=== PATIENT | male | born 1960 | race Caucasian/White ===

== ENCOUNTER 2022-08-29 12:36 | Observation (INO) | payer MEDICARE, OTHER ==
[~2022-08-29 12:36] MED LIST: Iopamidol-370 76% 500 ML 1 ML ONE
[2022-08-29] MEDS ORDERED: Aspirin Chewable 81 MG TAB ONE (13:00)
[2022-08-29] MEDS ORDERED: Ondansetron PF 4 MG/2 ML Vial ONE (13:00)
[2022-08-29] MEDS ORDERED: Nitroglycerin 50 MG/250 ML BOT 250 ML ONE (13:00)
[2022-08-29 13:46] LABS: #Lymphocytes 0.3 thou/uL (1.20-3.40); #Monocytes 0.5 thou/uL (0.11-0.59); #Neutrophils 8.5 thou/uL (1.40-6.50); %Eosinophils 0.1 % (0.0-10.0); %Lymphocytes 3.4 % (21.0-51.0); %Monocytes 4.8 % (0.0-10.0); %Neutrophils 91.7 % (42.0-75.0); Hemoglobin 15.9 g/dL (14.0-18.0); Mean Corpuscular HGB CONC 33.5 g/dL (32.0-36.0); Mean Corpuscular Hemoglobin 30.6 pg (27.0-31.0); Mean Corpuscular Volume 91.5 fl (78.0-98.0); Mean Platelet Volume 8.7 fL (7.4-10.4); Platelet Count 160 10x3/uL (130-400); RBC Distribution Width 12.1 % (11.5-14.5); White Blood Cell (WBC) Count 9.3 10x3/uL (4.8-10.8)
[2022-08-29 13:57] LABS: Acetaminophen Less than 10.0 mcg/mL (10.0-30.0); Alcohol Less than 10 mg/dL (Less than 10); CK (CPK) 240 U/L (30-200); PTT 29.8 sec (22.9-36.1); Prothrombin Time 13.9 sec (12.0-14.7); Salicylate Less than 8.0 mg/dL (15.0-30.0)
[2022-08-29 14:00] LABS: ALT (SGPT) 13 U/L (8-55); AST (SGOT) 22 U/L (5-34); Albumin 4.6 g/dL (3.4-4.8); Alkaline Phosphatase 74 U/L (40-110); Anion Gap 14 mmol/L (10-20); BUN (Urea Nitrogen) 11 mg/dL (8.4-25.7); Bilirubin, Total 2.8 mg/dL (0.2-1.2); Calc. Creatinine Clearance 0 mL/min (70-130); Calcium 9.9 mg/dL (7.8-10.44); Carbon Dioxide 21 mmol/L (23-31); Chloride 97 mmol/L (98-107); Estimated GFR 88; Globulin 3.6 g/dL (2.4-3.5); Glucose 113 mg/dL (80-115); Lipase 6 U/L (8-78); Potassium 2.8 mmol/L (3.5-5.1); Protein, Total 8.2 g/dL (5.8-8.1); Sodium 129 mmol/L (136-145)
[2022-08-29 14:06] LABS: Bilirubin Negative (Negative); Blood, Urine Negative (Negative); Clarity Clear (Clear); Glucose, Urine (Dipstick) Normal (Negative); Ketone, Urine 60 mg/dL (Negative); Leukocyte Negative Leu/uL (Negative); Nitrite Negative (Negative); Protein, Urine (Dipstick) 10 mg/dL (Neg-Trace); Specific Gravity, Urine 1.024 (1.002-1.036); Urobilinogen Normal mg/dL (Less than 2); pH, Urine 7.5 (5.0-9.0)
[2022-08-29 14:14] LABS: Amphetamine Detected (NotDetected); Barbiturates Screen Not Detected (NotDetected); Benzodiazepine Screen Not Detected (NotDetected); Cocaine Metabolite Screen Not Detected (NotDetected); Methadone Not Detected (NotDetected); Methamphetamine Detected (NotDetected); Opiate Screen Detected (NotDetected); Oxycodone Screen Not Detected (NotDetected); Phencyclidine (PCP) Not Detected (NotDetected); THC/Cannabinoid Screen Not Detected (NotDetected); Tricyclic Screen Not Detected (NotDetected)
[2022-08-29] MEDS ORDERED: Acetaminophen 500 MG TAB ONE (14:17)
[2022-08-29] MEDS ORDERED: Ketorolac Tromethamine 30 MG/ML VIAL ONE (14:35)
[2022-08-29] MEDS ORDERED: Nitroglycerin 2% Ointment 1 INCH/1 GM Packet ONE (14:35)
[2022-08-29] MEDS ORDERED: Acetaminophen 325 MG TAB PO PRN (15:59)
[2022-08-29] MEDS ORDERED: Lorazepam 2 MG/ML VIAL SLOW IVP SCH ×2 (16:00→23:59)
[2022-08-29] MEDS ORDERED: cloNIDine 0.1 MG TAB PO PRN (16:01)
[2022-08-29] MEDS ORDERED: Baclofen 10 MG TAB PO PRN (16:04)
[2022-08-29] MEDS ORDERED: Nicotine 14 MG PATCH TD PRN (16:15)
[2022-08-29] MEDS ORDERED: Electrolyte Replacement Protocol 1 EACH FS SCH (16:15)
[2022-08-29] MEDS ORDERED: Sodium Chloride 0.9% 1,000 ML IV SCH ×2 (16:15→18:00)
[2022-08-29 16:51] LABS: Magnesium 1.4 mg/dL (1.6-2.6)
[2022-08-29 16:56] LABS: Troponin I Less than 0.010 ng/mL (< 0.028)
[2022-08-29 17:06] VITALS: BMI 29.0
[2022-08-29] MEDS: Metoclopramide HCl 10 MG/2 ML VIAL IVP PRN (18:11)
[2022-08-29] MEDS: Lorazepam 2 MG/ML VIAL SLOW IVP PRN ×4 (18:12→22:19)
[2022-08-29] MEDS: Potassium Chloride 40 MEQ in Premix Bag 1 BAG IVPB SCH ×2 (18:52→23:46)
[2022-08-29] MEDS: NS 0.9% w/ 40 MEQ KCL 1,000 ML IV SCH (19:40)
[2022-08-29] MEDS ORDERED: Magnesium 2 GM/50 ML(in water) 2 GM in Premix Bag 1 BAG IVPB SCH (20:00)
[2022-08-29 21:01] LABS: Troponin I Less than 0.010 ng/mL (< 0.028)
[2022-08-30] MEDS: Lorazepam 2 MG/ML VIAL SLOW IVP PRN ×2 (01:28→08:48)
[2022-08-30] MEDS: Metoclopramide HCl 10 MG/2 ML VIAL IVP PRN ×2 (03:02→08:48)
[2022-08-30 04:30] VITALS: BP 157/81; TEMP 98.4
[2022-08-30 05:33] LABS: #Basophils 0.1 thou/uL (0.0-0.2); #Lymphocytes 0.4 thou/uL (1.20-3.40); #Monocytes 0.9 thou/uL (0.11-0.59); #Neutrophils 7.4 thou/uL (1.40-6.50); %Basophils 1.4 % (0.0-1.0); %Eosinophils 0.2 % (0.0-10.0); %Lymphocytes 4.7 % (21.0-51.0); %Monocytes 10.1 % (0.0-10.0); %Neutrophils 83.6 % (42.0-75.0); Hemoglobin 16.8 g/dL (14.0-18.0); Mean Corpuscular HGB CONC 33.8 g/dL (32.0-36.0); Mean Corpuscular Hemoglobin 30.9 pg (27.0-31.0); Mean Corpuscular Volume 91.4 fl (78.0-98.0); Mean Platelet Volume 9.2 fL (7.4-10.4); Platelet Count 153 10x3/uL (130-400); RBC Distribution Width 12.2 % (11.5-14.5); Red Blood Cell (RBC) Count 5.44 mill/uL (4.70-6.10); White Blood Cell (WBC) Count 8.8 10x3/uL (4.8-10.8)
[2022-08-30 05:49] LABS: Anion Gap 16 mmol/L (10-20); BUN (Urea Nitrogen) 11 mg/dL (8.4-25.7); Calc. Creatinine Clearance 104 mL/min (70-130); Calcium 9.8 mg/dL (7.8-10.44); Carbon Dioxide 19 mmol/L (23-31); Chloride 101 mmol/L (98-107); Estimated GFR 93; Glucose 101 mg/dL (80-115); Potassium 3.5 mmol/L (3.5-5.1); Sodium 132 mmol/L (136-145)
[2022-08-30] MEDS ORDERED: Potassium Chloride 20 MEQ TAB PO SCH (08:00)
[2022-08-30] MEDS ORDERED: Magnesium 2 GM/50 ML(in water) 2 GM in Premix Bag 1 BAG IVPB SCH (08:00)
[2022-08-30] MEDS ORDERED: Levothyroxine Sodium 25 MCG TAB PO SCH (08:15)
[2022-08-30] MEDS: NS 0.9% w/ 40 MEQ KCL 1,000 ML IV SCH (10:17)
[2022-08-31] MEDS ORDERED: Levothyroxine Sodium 25 MCG TAB PO SCH (06:00)
== END 2022-08-30 10:25 | disposition home or self-care (01) ==
LOC: ERS 12:36 → 2SW 16:23
PROVIDERS: ADMIT Internal Medicine; ATTEND Internal Medicine
DX: F15.129 Other stimulant abuse with intoxication, unspecified (principal); E87.1 Hypo-osmolality and hyponatremia; E87.6 Hypokalemia; E83.42 Hypomagnesemia; G89.29 Other chronic pain; M54.2 Cervicalgia; F90.9 Attention-deficit hyperactivity disorder, unspecified type; R94.31 Abnormal electrocardiogram [ECG] [EKG]; F17.220 Nicotine dependence, chewing tobacco, uncomplicated; J32.0 Chronic maxillary sinusitis; Z79.890 Hormone replacement therapy; Z79.891 Long term (current) use of opiate analgesic; Z79.899 Other long term (current) drug therapy; Z20.822 Contact with and (suspected) exposure to COVID-19
CPT/HCPCS: 70450; 71045; 71275; 74174; 80048; 80306; 80307; 81003; 82550; 83605; 83690; 83735 ×2; 84484 ×2; 85025; 85610; 85730; 93005; 96374; 96375; 99285; U0003; U0005; 36415; 80053; 84443; 96365; 96376; G0378; J1885; J2060; J2405; J2765; J3475; J3480; J7050; Q9967

== ENCOUNTER 2023-06-06 04:50 | Inpatient (IN) | payer OTHER ==
[2023-06-06] MEDS ORDERED: Vancomycin 1 GM/200 ML (FROZEN) BAG ONE (05:37)
[2023-06-06] MEDS ORDERED: Cefepime 2 GM VIAL ONE (05:37)
[2023-06-06 05:47] LABS: #Eosinphils 0.1 thou/uL (0.0-0.7); #Monocytes 0.5 thou/uL (0.11-0.59); #Neutrophils 4.6 thou/uL (1.40-6.50); %Basophils 0.5 % (0.0-1.0); %Eosinophils 1.1 % (0.0-10.0); %Monocytes 8.1 % (0.0-10.0); %Neutrophils 81.1 % (42.0-75.0); Hematocrit 38.2 % (42.0-52.0); Hemoglobin 13.5 g/dL (14.0-18.0); Mean Corpuscular HGB CONC 35.3 g/dL (32.0-36.0); Mean Corpuscular Hemoglobin 31.2 pg (27.0-31.0); Mean Corpuscular Volume 88.2 fl (78.0-98.0); Mean Platelet Volume 10.9 fL (7.4-10.4); Platelet Count 168 10x3/uL (130-400); RBC Distribution Width 12.6 % (11.5-14.5); Red Blood Cell (RBC) Count 4.33 mill/uL (4.70-6.10); White Blood Cell (WBC) Count 5.7 10x3/uL (4.8-10.8)
[2023-06-06 06:12] LABS: Acetaminophen Less than 10 mcg/mL (10.0-30.0); Alcohol Less than 10.0 mg/dL (Less than 10); Salicylate Less than 8.0 mg/dL (15.0-30.0)
[2023-06-06 06:13] LABS: ALT (SGPT) 11 U/L (8-55); AST (SGOT) 14 U/L (5-34); Albumin 4.1 g/dL (3.4-4.8); Alkaline Phosphatase 69 U/L (40-110); Anion Gap 14 mmol/L (10-20); BUN (Urea Nitrogen) 15 mg/dL (8.4-25.7); Bilirubin, Total 1.5 mg/dL (0.2-1.2); Calc. Creatinine Clearance 0 mL/min (70-130); Carbon Dioxide 21 mmol/L (23-31); Chloride 103 mmol/L (98-107); Estimated GFR 78; Globulin 2.7 g/dL (2.4-3.5); Glucose 106 mg/dL (80-115); Lipase 7 U/L (8-78); Potassium 3.6 mmol/L (3.5-5.1); Protein, Total 6.8 g/dL (5.8-8.1); Sodium 134 mmol/L (136-145)
[2023-06-06] MEDS ORDERED: Promethazine HCl 25 MG/ML VIAL ONE (06:21)
[2023-06-06 06:26] LABS: SARS-CoV-2 NAA Rapid Test DETECTED (NotDetected)
[2023-06-06 07:21] LABS: Bacteria/HPF None Seen HPF (None Seen); Bilirubin Negative (Negative); Blood, Urine Negative (Negative); CAUTI Indications for Culture Fever or rigors; Glucose, Urine (Dipstick) Normal (Negative); Ketone, Urine Negative (Negative); Leukocyte Negative Leu/uL (Negative); Nitrite Negative (Negative); Protein, Urine (Dipstick) 10 mg/dL (Neg-Trace); Specific Gravity, Urine 1.019 (1.002-1.036); Squamous Epithelial None Seen HPF (0-3); Urobilinogen Normal mg/dL (Less than 2)
[2023-06-06 07:28] LABS: Amphetamine Not Detected (NotDetected); Barbiturates Screen Not Detected (NotDetected); Benzodiazepine Screen Not Detected (NotDetected); Cocaine Metabolite Screen Not Detected (NotDetected); Methadone Not Detected (NotDetected); Methamphetamine Not Detected (NotDetected); Opiate Screen Detected (NotDetected); Oxycodone Screen Not Detected (NotDetected); Phencyclidine (PCP) Not Detected (NotDetected); THC/Cannabinoid Screen Not Detected (NotDetected); Tricyclic Screen Not Detected (NotDetected)
[2023-06-06 07:36] LABS: Clarity Hazy (Clear)
[2023-06-06 07:37] LABS: RBC/HPF None Seen HPF (0-3); WBC/HPF None Seen HPF (0-3); Yeast-Budding None Seen HPF (None Seen)
[2023-06-06 07:38] LABS: Urine Culture Reflex No No
[2023-06-06 07:49] VITALS: BMI 28.3
[2023-06-06] MEDS ORDERED: VANCOMYCIN IVPB PRN (08:38)
[2023-06-06] MEDS ORDERED: Polyethylene Glycol 3350 17 GM Packet PO PRN (08:40)
[2023-06-06] MEDS ORDERED: Docusate 100 MG CAP PO PRN (08:40)
[2023-06-06] MEDS ORDERED: Acetaminophen 650 MG Suppository PR PRN (08:41)
[2023-06-06] MEDS ORDERED: Albuterol 200 PUFF (6.7GM INHALER) INH PRN (08:43)
[2023-06-06] MEDS ORDERED: NS 0.9% w/ 20 MEQ KCL 1,000 ML/1,000 ML BAG IV SCH (08:45)
[2023-06-06] MEDS ORDERED: Electrolyte Replacement Protocol 1 EACH FS SCH (08:45)
[2023-06-06 09:06] LABS: CRP (Inflammatory) 1.37 mg/dL (= or < 0.5); Magnesium 1.5 mg/dL (1.6-2.6)
[2023-06-06] MEDS ORDERED: REMDESIVIR 200 MG in Sodium Chloride 0.9% 250 ML 210 ML IV SCH (09:45)
[2023-06-06] MEDS ORDERED: Ascorbic Acid 500 mg Chewable Tablet PO SCH (09:45)
[2023-06-06] MEDS ORDERED: Tamsulosin HCl 0.4 MG CAP PO SCH (09:45)
[2023-06-06] MEDS ORDERED: Dexamethasone 10 MG/ML VIAL SLOW IVP SCH (09:45)
[2023-06-06] MEDS ORDERED: Lisinopril 10 MG TAB PO SCH (09:45)
[2023-06-06] MEDS ORDERED: Pantoprazole 40 MG VIAL IVP SCH (09:45)
[2023-06-06] MEDS ORDERED: Zinc Sulfate 220 MG CAP PO SCH (09:46)
[2023-06-06] MEDS ORDERED: Electrolyte Replacement Protocol FS PRN (10:00)
[2023-06-06] MEDS: Metoclopramide HCl 10 MG/2 ML VIAL IVP PRN ×2 (10:07→16:40)
[2023-06-06] MEDS: Acetaminophen 325 MG TAB PO PRN ×2 (10:29→16:40)
[2023-06-06] MEDS: Benzonatate 100 MG CAP PO PRN ×2 (10:30→16:40)
[2023-06-06] MEDS ORDERED: Magnesium 2 GM/50 ML(in water) 2 GM in Premix Bag 1 BAG IVPB SCH (12:30)
[2023-06-06] MEDS: Vancomycin 1 GM in Premix Bag 1 BAG IVPB SCH (14:17)
[2023-06-06] MEDS ORDERED: Cefepime 1 GM in Sodium Chloride 0.9% 100 ML IVPB SCH (17:00)
[2023-06-06] MEDS ORDERED: Morphine ER 15 MG TAB PO SCH (18:15)
[2023-06-06] MEDS ORDERED: Zolpidem Tartrate 5 MG TAB PO PRN (18:45)
[2023-06-06] MEDS ORDERED: Cholecalciferol 1,000 UNITS (25 MCG) TAB PO SCH (21:00)
[2023-06-07] MEDS: Vancomycin 1 GM in Premix Bag 1 BAG IVPB SCH (00:40)
[2023-06-07 04:49] VITALS: BP 166/94; TEMP 98
[2023-06-07] MEDS ORDERED: Cefepime 2 GM in Sodium Chloride 0.9% 100 ML IVPB SCH (05:00)
[2023-06-07 05:46] LABS: #Monocytes 0.9 thou/uL (0.11-0.59); #Neutrophils 5.5 thou/uL (1.40-6.50); %Basophils 0.1 % (0.0-1.0); %Lymphocytes 8.4 % (21.0-51.0); %Monocytes 12.3 % (0.0-10.0); %Neutrophils 79.1 % (42.0-75.0); Hemoglobin 14.8 g/dL (14.0-18.0); Mean Corpuscular HGB CONC 36.1 g/dL (32.0-36.0); Mean Corpuscular Hemoglobin 31.4 pg (27.0-31.0); Mean Platelet Volume 10.5 fL (7.4-10.4); Platelet Count 174 10x3/uL (130-400); RBC Distribution Width 12.4 % (11.5-14.5); Red Blood Cell (RBC) Count 4.71 mill/uL (4.70-6.10); White Blood Cell (WBC) Count 6.9 10x3/uL (4.8-10.8)
[2023-06-07] MEDS ORDERED: Levothyroxine Sodium 25 MCG TAB PO SCH (06:00)
[2023-06-07 06:09] LABS: ALT (SGPT) 10 U/L (8-55); AST (SGOT) 18 U/L (5-34); Albumin 4.3 g/dL (3.4-4.8); Alkaline Phosphatase 67 U/L (40-110); Bilirubin, Direct 0.4 mg/dL (0.1-0.3); Bilirubin, Total 0.8 mg/dL (0.2-1.2); Protein, Total 7.5 g/dL (5.8-8.1)
[2023-06-07 06:14] LABS: ALT (SGPT) 11 U/L (8-55); AST (SGOT) 19 U/L (5-34); Albumin 4.2 g/dL (3.4-4.8); Alkaline Phosphatase 66 U/L (40-110); Anion Gap 12 mmol/L (10-20); BUN (Urea Nitrogen) 11 mg/dL (8.4-25.7); Calc. Creatinine Clearance 99 mL/min (70-130); Carbon Dioxide 22 mmol/L (23-31); Chloride 105 mmol/L (98-107); Estimated GFR 87; Globulin 3.4 g/dL (2.4-3.5); Glucose 112 mg/dL (80-115); Potassium 3.4 mmol/L (3.5-5.1); Protein, Total 7.6 g/dL (5.8-8.1); Sodium 136 mmol/L (136-145)
[2023-06-07] MEDS ORDERED: Potassium Chloride 20 MEQ TAB PO SCH (08:00)
[2023-06-07] MEDS ORDERED: Pantoprazole 40 MG VIAL IVP SCH (09:00)
[2023-06-07] MEDS ORDERED: Ascorbic Acid 500 mg Chewable Tablet PO SCH (09:00)
[2023-06-07] MEDS ORDERED: Zinc Sulfate 220 MG CAP PO SCH (09:00)
[2023-06-07] MEDS ORDERED: Lisinopril 10 MG TAB PO SCH (09:00)
[2023-06-07] MEDS ORDERED: Tamsulosin HCl 0.4 MG CAP PO SCH (09:00)
[2023-06-07] MEDS ORDERED: Dexamethasone 10 MG/ML VIAL SLOW IVP SCH (09:00)
[2023-06-07] MEDS ORDERED: REMDESIVIR 100 MG in Sodium Chloride 0.9% 250 ML 230 ML IV SCH (09:00)
== END 2023-06-07 08:41 | disposition home or self-care (01) | DRG 871 ==
LOC: SUATTDRO 04:50 → ERS 04:50 → T4-B 07:32 → OBSVTOIN 08:55
PROVIDERS: ADMIT Student in an Organized Health Care Education/Training Program; ATTEND Family Medicine
PROC: XW033E5 Introduction of Remdesivir Anti-infective into Peripheral Vein, Percutaneous Approach, New Technology Group 5 (ICD-10-PCS; principal; 2023-06-06)
PROC: 3E0333Z Introduction of Anti-inflammatory into Peripheral Vein, Percutaneous Approach (ICD-10-PCS; 2023-06-06)
PROC: 8E0ZXY6 Isolation (ICD-10-PCS; 2023-06-06)
DX: A41.89 Other specified sepsis (principal); J96.01 Acute respiratory failure with hypoxia; U07.1 COVID-19; I10 Essential (primary) hypertension; F41.9 Anxiety disorder, unspecified; G89.29 Other chronic pain; E03.9 Hypothyroidism, unspecified; N40.0 Benign prostatic hyperplasia without lower urinary tract symptoms; F90.9 Attention-deficit hyperactivity disorder, unspecified type; F31.9 Bipolar disorder, unspecified; F17.220 Nicotine dependence, chewing tobacco, uncomplicated; Z79.899 Other long term (current) drug therapy; Z98.890 Other specified postprocedural states
CPT/HCPCS: 36415; 71045; 80053; 80306; 80307; 81001; 83605; 83690; 83735; 85025; 86140; 87040; 87081; 87086; 93005; 93010; 96365; 96367; C9113; J0248; J0692; J1100; J1650; J2550; J2765; J3370-JW; J3475; J3480; J3490; J7050

== ENCOUNTER 2024-11-23 11:02 | Emergency (ER) | payer OTHER ==
[2024-11-23] MEDS ORDERED: Iopamidol-370 76% 500 ML MDV (1 ML CHARGE) ONE (11:11)
[2024-11-23 12:02] LABS: #Basophils 0.03 10x3/uL (0.0-0.2); %Basophils 0.2 % (0.0-1.0); %Eosinophils 0.2 % (0.0-10.0); %Lymphocytes 4.5 % (21.0-51.0); %Monocytes 3.3 % (0.0-10.0); %Neutrophils 91.4 % (42.0-75.0); Hematocrit 41.1 % (42.0-52.0); Mean Corpuscular HGB CONC 34.1 g/dL (32.0-36.0); Mean Corpuscular Volume 88.2 fL (78.0-98.0); Platelet Count 162 10x3/uL (130-400); RBC Distribution Width 13.1 % (11.5-14.5); Red Blood Cell (RBC) Count 4.66 mill/uL (4.70-6.10)
[2024-11-23] MEDS ORDERED: Ondansetron PF 4 MG/2 ML Vial ONE (12:16)
[2024-11-23 12:19] LABS: ALT (SGPT) 11 U/L (Less than 45); AST (SGOT) 25 U/L (11-34); Albumin 3.8 g/dL (3.1-4.5); Alkaline Phosphatase 68 U/L (40-110); Anion Gap 15 mmol/L (10-20); BUN (Urea Nitrogen) 13 mg/dL (8.4-25.7); Bilirubin, Total 1.3 mg/dL (0.3-1.2); Calc. Creatinine Clearance 0 mL/min (70-130); Calcium 8.9 mg/dL (7.8-10.44); Carbon Dioxide 23 mmol/L (23-31); Chloride 105 mmol/L (98-107); Estimated GFR 80; Globulin 3.5 g/dL (2.4-3.5); Glucose 108 mg/dL (80-115); Lipase 10 U/L (8-78); Potassium 3.6 mmol/L (3.5-5.1); Protein, Total 7.3 g/dL (5.8-8.1); Sodium 139 mmol/L (136-145)
[2024-11-23 12:51] LABS: Bacteria/HPF None Seen HPF (None Seen); Bilirubin Negative (Negative); Blood, Urine Negative (Negative); CAUTI Indications for Culture Pelvic or flank pain; Clarity Clear (Clear); Glucose, Urine (Dipstick) Normal (Negative); Ketone, Urine Negative (Negative); Leukocyte Negative Leu/uL (Negative); Nitrite Negative (Negative); Protein, Urine (Dipstick) Negative (Neg-Trace); RBC/HPF 0-3 HPF (0-3); Specific Gravity, Urine 1.011 (1.002-1.036); Squamous Epithelial None Seen HPF (0-3); Urobilinogen Normal mg/dL (Less than 2); WBC/HPF None Seen HPF (0-3)
[2024-11-23 13:10] LABS: Urine Culture Reflex No No
[2024-11-23 14:10] LABS: Troponin I Less than 0.010 ng/mL (< 0.028)
== END 2024-11-23 15:04 | disposition home or self-care (01) ==
LOC: ERS 11:02
DX: R10.84 Generalized abdominal pain (principal); J98.4 Other disorders of lung; I10 Essential (primary) hypertension; F17.220 Nicotine dependence, chewing tobacco, uncomplicated; Z79.899 Other long term (current) drug therapy
CPT/HCPCS: 71045; 74177; 80053; 81001; 83690; 84484; 85025; 87428; 93005; J2405; 36415; 96361; 96374; Q9967

== ENCOUNTER 2024-11-24 10:23 | Inpatient (IN) | payer OTHER ==
[2024-11-24] MEDS ORDERED: Prochlorperazine Maleate 5 MG TAB ONE (10:31)
[2024-11-24] MEDS ORDERED: Nitroglycerin 0.4 MG TAB 1 EACH ONE ×2 (10:31)
[2024-11-24] MEDS ORDERED: Prochlorperazine 10 MG/2 ML VIAL ONE (10:31)
[2024-11-24] MEDS ORDERED: Iopamidol-370 76% 500 ML MDV (1 ML CHARGE) ONE (10:32)
[2024-11-24] MEDS ORDERED: Morphine 4 MG/ML VIAL ONE (10:39)
[2024-11-24 10:43] LABS: Actual Bicarbonate (HCO3v) 18.7 mEq/L (22-28); Analyzer IN Cardio ER; Base Excess 1.2 mEq/L (-2.0 to +3.0); Chloride (VBG) 95 mmol/L (98-106); Hematocrit-VBG 53 % (42.0-52.0); Hemoglobin (Hb) 18.1 g/dL (13.1-17.2); Potassium (VBG) 2.92 mmol/L (3.70-5.30); Sodium 139 mmol/L (133-146); pH (venous) 7.629 (7.32-7.43)
[2024-11-24 11:16] LABS: ALT (SGPT) 17 U/L (Less than 45); AST (SGOT) 69 U/L (11-34); Alkaline Phosphatase 93 U/L (40-110); Anion Gap 25 mmol/L (10-20); BUN (Urea Nitrogen) 21 mg/dL (8.4-25.7); Bilirubin, Total 3.8 mg/dL (0.3-1.2); Calc. Creatinine Clearance 0 mL/min (70-130); Calcium 11.2 mg/dL (7.8-10.44); Carbon Dioxide 18 mmol/L (23-31); Chloride 97 mmol/L (98-107); Estimated GFR 55; Globulin 5.2 g/dL (2.4-3.5); Glucose 140 mg/dL (80-115); Lipase 18 U/L (8-78); Magnesium 1.5 mg/dL (1.6-2.6); Potassium 3.4 mmol/L (3.5-5.1); Protein, Total 10.2 g/dL (5.8-8.1); Sodium 137 mmol/L (136-145)
[2024-11-24 11:22] LABS: Troponin I 0.036 ng/mL (< 0.028)
[2024-11-24] MEDS ORDERED: Potassium Chloride 20 MEQ TAB ONE (11:27)
[2024-11-24] MEDS ORDERED: Magnesium 2 GM/50 ML BAG (IN WATER) ONE (11:27)
[2024-11-24 11:30] LABS: Hematocrit 46.8 % (42.0-52.0); Hemoglobin 16.6 g/dL (14.0-18.0); Mean Corpuscular HGB CONC 35.5 g/dL (32.0-36.0); Mean Corpuscular Volume 84.6 fL (78.0-98.0); Mean Platelet Volume 11.2 fL (7.4-10.4); Platelet Count 277 10x3/uL (130-400); RBC Distribution Width 13.1 % (11.5-14.5); Red Blood Cell (RBC) Count 5.53 mill/uL (4.70-6.10)
[2024-11-24 11:41] LABS: Acetaminophen Less than 10 mcg/mL (Less than 10); Alcohol Less than 10.0 mg/dL (Less than 10); Salicylate Less than 8.0 mg/dL (Less than 8.0)
[2024-11-24 11:54] LABS: Band 2 % (5-11); Lymphocytes 1 % (21-51); Neutrophil 97 % (42-75); Platelet Adequacy Comment Platelets Normal; RBC Morphology Within Normal Limits; Vacuoles SLIGHT
[2024-11-24 11:56] LABS: INR-International Normal Ratio 1.1; Prothrombin Time 14.4 sec (12.0-14.7)
[2024-11-24] MEDS ORDERED: Doxycycline 100 MG CAP ONE (12:44)
[2024-11-24] MEDS ORDERED: Cefepime 2 GM VIAL ONE (12:44)
[2024-11-24] MEDS ORDERED: Bisacodyl 5 MG TAB PO PRN (13:15)
[2024-11-24 13:49] LABS: Hemoglobin A1c 5.1 % (4.0-6.0)
[2024-11-24 13:51] LABS: Lactic Acid 2.79 mmol/L (0.50-2.20)
[2024-11-24 13:52] LABS: Cardiac Risk 3.6 (Less than 4.5); Troponin I 0.053 ng/mL (< 0.028)
[2024-11-24 13:56] LABS: Bacteria/HPF None Seen HPF (None Seen); Bilirubin Negative (Negative); Blood, Urine 3+ (Negative); CAUTI Indications for Culture Alt mental st,lethar; Clarity Clear (Clear); Glucose, Urine (Dipstick) 30 mg/dL (Negative); Ketone, Urine 40 mg/dL (Negative); Leukocyte Negative Leu/uL (Negative); Nitrite Negative (Negative); Protein, Urine (Dipstick) 600 mg/dL (Neg-Trace); Squamous Epithelial None Seen HPF (0-3); Urobilinogen Normal mg/dL (Less than 2); WBC/HPF None Seen HPF (0-3)
[2024-11-24 13:58] LABS: Specific Gravity, Urine Greater than 1.060 (1.002-1.036); Urine Culture Reflex No No
[2024-11-24 14:01] LABS: Amphetamine Not Detected (NotDetected); Barbiturates Screen Not Detected (NotDetected); Benzodiazepine Screen Not Detected (NotDetected); Cocaine Metabolite Screen Not Detected (NotDetected); Methadone Not Detected (NotDetected); Methamphetamine Detected (NotDetected); Opiate Screen Detected (NotDetected); Oxycodone Screen Not Detected (NotDetected); Phencyclidine (PCP) Not Detected (NotDetected); THC/Cannabinoid Screen Not Detected (NotDetected); Tricyclic Screen Detected (NotDetected)
[2024-11-24] MEDS ORDERED: Electrolyte Replacement Protocol 1 EACH FS SCH (16:00)
[2024-11-24] MEDS ORDERED: Electrolyte Replacement Protocol FS PRN (16:00)
[2024-11-24 16:43] LABS: Troponin I 0.083 ng/mL (< 0.028)
[2024-11-24] MEDS: Lorazepam 2 MG/ML VIAL SLOW IVP SCH (16:44)
[2024-11-24] MEDS: Thiamine HCl 200 MG/2 ML VIAL SLOW IVP SCH (16:58)
[2024-11-24] MEDS: Vancomycin (BATCH) 2 GM in Premix 1 BAG IVPB SCH ×2 (17:14→17:41)
[2024-11-24] MEDS: hydrALAZINE 20 MG/ML VIAL SLOW IVP PRN (19:56)
[2024-11-24] MEDS: Lorazepam 2 MG/ML VIAL SLOW IVP PRN (19:57)
[2024-11-24] MEDS: Lactated Ringer's 1,000 ML IV SCH (20:01)
[2024-11-24 20:58] LABS: Troponin I 0.068 ng/mL (< 0.028)
[2024-11-24] MEDS ORDERED: Vancomycin 1.75 GM in Sodium Chloride 0.9% 500 ML IVPB SCH (21:00)
[2024-11-25] MEDS: Cefepime 2 GM in Sodium Chloride 0.9% 100 ML IVPB SCH ×2 (01:06→08:42)
[2024-11-25 01:25] LABS: Troponin I 0.074 ng/mL (< 0.028)
[2024-11-25 04:24] LABS: #Basophils 0.04 10x3/uL (0.0-0.2); #Eosinophils Less than 0.03 10x3/uL (0.0-0.7); %Basophils 0.2 % (0.0-1.0); %Lymphocytes 4.7 % (21.0-51.0); %Monocytes 4.5 % (0.0-10.0); Hematocrit 41.5 % (42.0-52.0); Hemoglobin 14.7 g/dL (14.0-18.0); Mean Corpuscular HGB CONC 35.4 g/dL (32.0-36.0); Mean Corpuscular Hemoglobin 29.9 pg (27.0-31.0); Mean Corpuscular Volume 84.3 fL (78.0-98.0); Mean Platelet Volume 11.5 fL (7.4-10.4); Platelet Count 213 10x3/uL (130-400); RBC Distribution Width 13.4 % (11.5-14.5); Red Blood Cell (RBC) Count 4.92 mill/uL (4.70-6.10)
[2024-11-25 04:33] LABS: Phosphorus 2.1 mg/dL (2.5-4.5)
[2024-11-25 04:41] LABS: Vancomycin, Random 11.5 ug/mL (See Comment)
[2024-11-25 04:52] LABS: ALT (SGPT) 30 U/L (Less than 45); AST (SGOT) 138 U/L (11-34); Albumin 3.8 g/dL (3.1-4.5); Alkaline Phosphatase 75 U/L (40-110); Anion Gap 14 mmol/L (10-20); BUN (Urea Nitrogen) 14 mg/dL (8.4-25.7); Bilirubin, Total 2.6 mg/dL (0.3-1.2); Calc. Creatinine Clearance 121 mL/min (70-130); Calcium 8.8 mg/dL (7.8-10.44); Carbon Dioxide 20 mmol/L (23-31); Chloride 104 mmol/L (98-107); Estimated GFR 98; Globulin 3.7 g/dL (2.4-3.5); Glucose 113 mg/dL (80-115); Magnesium 1.8 mg/dL (1.6-2.6); Potassium 3.1 mmol/L (3.5-5.1); Protein, Total 7.5 g/dL (5.8-8.1); Sodium 135 mmol/L (136-145)
[2024-11-25] MEDS: Potassium Chloride 20 MEQ TAB PO SCH ×3 (06:26→16:52)
[2024-11-25] MEDS: Enoxaparin 40 MG (0.4 mL) SYRINGE SC SCH (08:42)
[2024-11-25] MEDS: Folic Acid 1 MG TAB PO SCH (08:43)
[2024-11-25] MEDS: Pantoprazole 40 MG DR.TAB PO SCH (08:43)
[2024-11-25] MEDS: Multivit, Therapeutic 1 TAB PO SCH (08:43)
[2024-11-25] MEDS: PHOS-NAK 1 PKT PACK PO SCH (08:43)
[2024-11-25] MEDS: Magnesium 2 GM/50 ML(in water) 2 GM in Premix 1 BAG IVPB SCH (09:40)
[2024-11-25] MEDS: Metoclopramide HCl 10 MG (2 mL) VIAL IVP SCH (09:54)
[2024-11-25] MEDS ORDERED: Diazepam 5 MG TAB PO SCH (10:30)
[2024-11-25] MEDS ORDERED: Diazepam 10 MG/2 ML SYRINGE IM SCH (11:15)
[2024-11-25] MEDS: Diazepam 10 MG/2 ML SYRINGE IVP SCH ×2 (11:27→20:14)
[2024-11-25] MEDS: Vancomycin (BATCH) 1.5 GM in Premix 1 BAG IVPB SCH (12:30)
[2024-11-25 15:05] LABS: Base Excess -1.2 mEq/L (-2.0 to +3.0); Calcium, Ionized (venous) 1.06 mmol/L (1.16-1.32); Hematocrit-VBG 46 % (42.0-52.0); Hemoglobin (Hb) 15.8 g/dL (13.1-17.2); Potassium (VBG) 3.12 mmol/L (3.70-5.30); Sodium 134 mmol/L (133-146); pH (venous) 7.505 (7.32-7.43)
[2024-11-25] MEDS ORDERED: Vancomycin (BATCH) 1.5 GM in Premix 1 BAG IVPB SCH (16:00)
[2024-11-25] MEDS: Lisinopril 20 MG TAB PO SCH (20:14)
[2024-11-25] MEDS ORDERED: Lisinopril 10 MG TAB PO SCH (21:00)
[2024-11-25] MEDS: Vancomycin 1.5 GRAM/300 ML BAG 1.5 GM in Premix 1 BAG IVPB SCH (21:24)
[2024-11-25] MEDS ORDERED: Lorazepam 2 MG/ML VIAL IM PRN (21:37)
[2024-11-25] MEDS ORDERED: Ondansetron ODT 4 MG TAB PO PRN (21:37)
[2024-11-25] MEDS: Diazepam 5 MG TAB PO SCH (21:54)
[2024-11-25] MEDS: Lactated Ringer's 1,000 ML IV SCH (23:21)
[2024-11-25] MEDS: FLU (Fluarix Triv) TS24-25(6MOS UP)/PF 45 MCG/0.5 ML Syringe IM ONE (23:26)
[2024-11-26 01:59] LABS: Campy jejuni + coli by PCR Negative (Negative); STEC Shiga Toxin 1+2 Negative (Negative); Salmonella spp. by PCR Negative (Negative); Shigella spp + EIEC by PCR Negative (Negative)
[2024-11-26 05:44] LABS: #Basophils Less than 0.03 10x3/uL (0.0-0.2); #Eosinophils Less than 0.03 10x3/uL (0.0-0.7); %Basophils 0.1 % (0.0-1.0); %Eosinophils 0.1 % (0.0-10.0); %Monocytes 4.7 % (0.0-10.0); %Neutrophils 89.5 % (42.0-75.0); Hematocrit 38.5 % (42.0-52.0); Hemoglobin 13.4 g/dL (14.0-18.0); Mean Corpuscular HGB CONC 34.8 g/dL (32.0-36.0); Mean Corpuscular Hemoglobin 29.8 pg (27.0-31.0); Mean Corpuscular Volume 85.6 fL (78.0-98.0); Mean Platelet Volume 11.1 fL (7.4-10.4); Platelet Count 184 10x3/uL (130-400); RBC Distribution Width 13.7 % (11.5-14.5)
[2024-11-26] MEDS ORDERED: Potassium Chloride 40 MEQ in Premix 1 BAG IVPB SCH (06:00)
[2024-11-26 06:16] LABS: Vancomycin, Random 27.3 ug/mL (See Comment)
[2024-11-26 06:17] LABS: Phosphorus 1.8 mg/dL (2.5-4.5)
[2024-11-26 06:19] LABS: ALT (SGPT) 35 U/L (Less than 45); AST (SGOT) 91 U/L (11-34); Albumin 3.3 g/dL (3.1-4.5); Alkaline Phosphatase 61 U/L (40-110); Anion Gap 14 mmol/L (10-20); BUN (Urea Nitrogen) 17 mg/dL (8.4-25.7); Bilirubin, Total 1.9 mg/dL (0.3-1.2); Calc. Creatinine Clearance 112 mL/min (70-130); Calcium 8.4 mg/dL (7.8-10.44); Carbon Dioxide 17 mmol/L (23-31); Chloride 107 mmol/L (98-107); Estimated GFR 96; Globulin 3.4 g/dL (2.4-3.5); Glucose 109 mg/dL (80-115); Magnesium 2.1 mg/dL (1.6-2.6); Potassium 3.2 mmol/L (3.5-5.1); Protein, Total 6.7 g/dL (5.8-8.1); Sodium 135 mmol/L (136-145)
[2024-11-26] MEDS: Dexmedetomidine In 0.9 % NaCl 100 ML IVPB SCH (06:34)
[2024-11-26] MEDS: Potassium Chloride 20 MEQ TAB PO SCH ×2 (07:24→15:40)
[2024-11-26] MEDS: Lorazepam 1 MG TAB PO SCH (07:24)
[2024-11-26] MEDS: Vancomycin 1 GM in Premix 1 BAG IVPB SCH (07:25)
[2024-11-26] MEDS: PHOS-NAK 1 PKT PACK PO SCH ×2 (07:25→18:30)
[2024-11-26] MEDS ORDERED: Potassium Chloride 20 MEQ TAB PO SCH (08:00)
[2024-11-26] MEDS ORDERED: PHOS-NAK 1 PKT PACK PO SCH (08:00)
[2024-11-26] MEDS ORDERED: Loperamide HCl 2 MG CAP PO PRN (08:42)
[2024-11-26] MEDS: Loperamide HCl 2 MG CAP PO PRN (08:51)
[2024-11-26] MEDS: Lorazepam 1 MG TAB PO PRN ×2 (13:30→22:19)
[2024-11-26] MEDS: Mag-Al 1200 mg/1200 mg/30 ML UDCUP PO PRN (13:30)
[2024-11-26] MEDS ORDERED: Ondansetron PF 4 MG/2 ML Vial IVP PRN (13:43)
[2024-11-26] MEDS: Ondansetron PF 4 MG/2 ML Vial IVP SCH (13:46)
[2024-11-26] MEDS: cefTRIAXone\\ROCEPHIN 2 GM in Sodium Chloride 0.9% 100 ML IVPB SCH (15:39)
[2024-11-26] MEDS: Magnesium 2 GM/50 ML(in water) 2 GM in Premix 1 BAG IVPB SCH (15:40)
[2024-11-26] MEDS: Diazepam 5 MG TAB PO SCH (15:40)
[2024-11-26 16:55] LABS: Phosphorus 1.7 mg/dL (2.5-4.5)
[2024-11-26] MEDS: Ondansetron PF 4 MG/2 ML Vial ONE (16:55)
[2024-11-26 16:56] LABS: Anion Gap 13 mmol/L (10-20); BUN (Urea Nitrogen) 17 mg/dL (8.4-25.7); Calc. Creatinine Clearance 116 mL/min (70-130); Calcium 8.4 mg/dL (7.8-10.44); Carbon Dioxide 17 mmol/L (23-31); Chloride 109 mmol/L (98-107); Estimated GFR 97; Glucose 158 mg/dL (80-115); Magnesium 2.3 mg/dL (1.6-2.6); Potassium 2.9 mmol/L (3.5-5.1); Sodium 136 mmol/L (136-145)
[2024-11-26] MEDS: Doxycycline 100 MG CAP PO SCH (20:41)
[2024-11-27] MEDS: Acetaminophen 325 MG TAB PO PRN (00:09)
[2024-11-27 05:08] VITALS: BMI 28.4
[2024-11-27] MEDS ORDERED: Lorazepam 0.5 MG TAB PO SCH (06:00)
[2024-11-27 06:41] LABS: Phosphorus 2.4 mg/dL (2.5-4.5)
[2024-11-27 08:59] LABS: #Basophils 0.03 10x3/uL (0.0-0.2); %Basophils 0.3 % (0.0-1.0); %Eosinophils 1.1 % (0.0-10.0); %Lymphocytes 8.9 % (21.0-51.0); %Neutrophils 83.4 % (42.0-75.0); Hematocrit 39.4 % (42.0-52.0); Hemoglobin 13.5 g/dL (14.0-18.0); Mean Corpuscular HGB CONC 34.3 g/dL (32.0-36.0); Mean Corpuscular Volume 87.6 fL (78.0-98.0); Mean Platelet Volume 11.8 fL (7.4-10.4); Platelet Count 208 10x3/uL (130-400); RBC Distribution Width 14.1 % (11.5-14.5)
[2024-11-27 09:09] LABS: ALT (SGPT) 58 U/L (Less than 45); AST (SGOT) 100 U/L (11-34); Albumin 3.3 g/dL (3.1-4.5); Alkaline Phosphatase 69 U/L (40-110); Anion Gap 15 mmol/L (10-20); BUN (Urea Nitrogen) 11 mg/dL (8.4-25.7); Calc. Creatinine Clearance 129 mL/min (70-130); Calcium 8.5 mg/dL (7.8-10.44); Carbon Dioxide 16 mmol/L (23-31); Chloride 109 mmol/L (98-107); Estimated GFR 100; Globulin 3.3 g/dL (2.4-3.5); Glucose 94 mg/dL (80-115); Potassium 3.3 mmol/L (3.5-5.1); Protein, Total 6.6 g/dL (5.8-8.1); Sodium 137 mmol/L (136-145)
[2024-11-27] MEDS: Lisinopril 20 MG TAB PO SCH (09:17)
[2024-11-27 11:37] LABS: Magnesium 2.2 mg/dL (1.6-2.6)
[2024-11-27] MEDS: Amoxicillin/Potassium Clav 875 MG TAB PO SCH (11:49)
[2024-11-27] MEDS: Potassium Chloride 20 MEQ TAB PO SCH (11:49)
[2024-11-27 15:33] LABS: Anion Gap 12 mmol/L (10-20); BUN (Urea Nitrogen) 9 mg/dL (8.4-25.7); Calc. Creatinine Clearance 125 mL/min (70-130); Calcium 9.1 mg/dL (7.8-10.44); Carbon Dioxide 22 mmol/L (23-31); Chloride 109 mmol/L (98-107); Estimated GFR 100; Glucose 98 mg/dL (80-115); Potassium 3.7 mmol/L (3.5-5.1); Sodium 139 mmol/L (136-145)
[2024-11-27] MEDS: Thiamine 100 MG TAB PO SCH (16:25)
[2024-11-27 16:32] VITALS: BP 106/62; TEMP 97.2
[2024-11-27] MEDS ORDERED: Amoxicillin/Potassium Clav 875 MG TAB PO SCH (21:00)
[2024-11-27] MEDS ORDERED: Diazepam 5 MG TAB PO SCH (21:00)
[2024-11-27] MEDS ORDERED: QUEtiapine 25 MG TAB PO SCH (21:00)
[2024-11-27] MEDS ORDERED: Lorazepam 1 MG TAB PO PRN (21:37)
[2024-11-28] MEDS ORDERED: Lorazepam 0.5 MG TAB PO SCH (06:00)
[2024-11-28] MEDS ORDERED: QUEtiapine 25 MG TAB PO SCH (09:00)
[2024-11-28] MEDS ORDERED: Lorazepam 0.5 MG TAB PO PRN (21:37)
== END 2024-11-27 17:02 | disposition left against medical advice (07) | DRG 871 ==
LOC: ERS 10:23 → PCU 15:23 → CCU 11-25 21:56 → T4-B 11-26 19:48
PROVIDERS: ADMIT Internal Medicine; ATTEND Internal Medicine
DX: A41.9 Sepsis, unspecified organism (principal); G93.41 Metabolic encephalopathy; J18.9 Pneumonia, unspecified organism; E87.3 Alkalosis; N17.9 Acute kidney failure, unspecified; I24.89 Other forms of acute ischemic heart disease; E87.20 Acidosis, unspecified; F11.13 Opioid abuse with withdrawal; F15.13 Other stimulant abuse with withdrawal; L03.115 Cellulitis of right lower limb; N13.30 Unspecified hydronephrosis; E83.42 Hypomagnesemia; I10 Essential (primary) hypertension; F90.9 Attention-deficit hyperactivity disorder, unspecified type; E83.39 Other disorders of phosphorus metabolism; G62.9 Polyneuropathy, unspecified; E87.6 Hypokalemia; B19.20 Unspecified viral hepatitis C without hepatic coma; F14.10 Cocaine abuse, uncomplicated; F15.10 Other stimulant abuse, uncomplicated; N40.0 Benign prostatic hyperplasia without lower urinary tract symptoms; R79.89 Other specified abnormal findings of blood chemistry; F10.10 Alcohol abuse, uncomplicated; R94.31 Abnormal electrocardiogram [ECG] [EKG]; F32.A Depression, unspecified; W18.30XA Fall on same level, unspecified, initial encounter; F41.9 Anxiety disorder, unspecified; Z86.16 Personal history of COVID-19; Z79.899 Other long term (current) drug therapy; I48.91 Unspecified atrial fibrillation; E03.9 Hypothyroidism, unspecified; K21.9 Gastro-esophageal reflux disease without esophagitis; E78.00 Pure hypercholesterolemia, unspecified; M81.0 Age-related osteoporosis without current pathological fracture; Z79.02 Long term (current) use of antithrombotics/antiplatelets; Z79.82 Long term (current) use of aspirin; R10.84 Generalized abdominal pain; J98.4 Other disorders of lung; F17.220 Nicotine dependence, chewing tobacco, uncomplicated
CPT/HCPCS: 36415; 36416; 70450; 70553; 71045; 71275; 72125; 74174; 74177; 76376; 76705; 80048; 80053; 80061; 80202; 80306; 80307; 81001; 82550; 82805; 83036; 83605; 83690; 83735; 84100; 84145; 84443; 84484; 85025; 85610; 85730; 86850; 86900; 86901; 87040; 87081; 87324; 87428; 87449; 87505; 87633; 93005; 93010; 96361; 96374; J0360; J0692; J0696; J0780; J1650; J2060; J2270; J2405; J2765; J3360; J3370; J3411; J3475; J7120; Q0164; Q9967

== ENCOUNTER 2025-06-11 14:11 | Inpatient (IN) | payer OTHER ==
[2025-06-11] MEDS ORDERED: diphenhydrAMINE 50 MG/ML VIAL IVP PRN (15:19)
[2025-06-11] MEDS ORDERED: Acetaminophen 500 MG TAB PO PRN (15:19)
[2025-06-11] MEDS ORDERED: Electrolyte Replacement Protocol 1 EACH FS SCH (15:30)
[2025-06-11] MEDS: hydrALAZINE 20 MG/ML VIAL SLOW IVP PRN (18:21)
[2025-06-11] MEDS: Ondansetron PF 4 MG/2 ML Vial IVP PRN (18:21)
[2025-06-11] MEDS: Famotidine/PF 20 mg/2ml Vial SLOW IVP SCH (22:14)
[2025-06-11] MEDS: Gabapentin 300 MG CAP PO SCH (22:17)
[2025-06-12 05:49] LABS: #Basophils 0.04 10x3/uL (0.0-0.2); #Eosinophils Less than 0.03 10x3/uL (0.0-0.7); #Monocytes 0.94 10x3/uL (0.11-0.59); #Neutrophils 8.90 10x3/uL (1.40-6.50); %Basophils 0.3 % (0.0-1.0); %Eosinophils 0.2 % (0.0-10.0); %Lymphocytes 19.9 % (21.0-51.0); %Monocytes 7.6 % (0.0-10.0); %Neutrophils 71.7 % (42.0-75.0); Hematocrit 39.1 % (42.0-52.0); Hemoglobin 13.1 g/dL (14.0-18.0); Mean Corpuscular Hemoglobin 30.7 pg (27.0-31.0); Mean Corpuscular Volume 91.6 fL (78.0-98.0); Platelet Count 203 10x3/uL (130-400); Red Blood Cell (RBC) Count 4.27 mill/uL (4.70-6.10); White Blood Cell (WBC) Count 12.41 10x3/uL (4.8-10.8)
[2025-06-12 06:11] LABS: ALT (SGPT) 14 U/L (Less than 45); AST (SGOT) 34 U/L (11-34); Albumin 3.6 g/dL (3.1-4.5); Alkaline Phosphatase 61 U/L (40-110); Anion Gap 12 mmol/L (10-20); BUN (Urea Nitrogen) 19 mg/dL (8.4-25.7); Bilirubin, Total 1.5 mg/dL (0.3-1.2); Calc. Creatinine Clearance 0 mL/min (70-130); Calcium 8.2 mg/dL (7.8-10.44); Carbon Dioxide 20 mmol/L (23-31); Chloride 109 mmol/L (98-107); Globulin 2.8 g/dL (2.4-3.5); Glucose 93 mg/dL (80-115); Potassium 3.2 mmol/L (3.5-5.1); Sodium 138 mmol/L (136-145)
[2025-06-12] MEDS: Potassium Bicarbonate/Cit Ac 20 MEQ TAB PO SCH (09:45)
[2025-06-12 15:44] VITALS: BP 91/48; TEMP 98.8
== END 2025-06-12 15:24 | disposition home or self-care (01) | DRG 897 ==
LOC: T4-A 14:30
PROVIDERS: ADMIT Family Medicine; ATTEND Family Medicine
DX: F11.23 Opioid dependence with withdrawal (principal); G89.4 Chronic pain syndrome; F32.A Depression, unspecified; F41.9 Anxiety disorder, unspecified; G62.9 Polyneuropathy, unspecified; N40.0 Benign prostatic hyperplasia without lower urinary tract symptoms; G47.00 Insomnia, unspecified; I10 Essential (primary) hypertension; F90.9 Attention-deficit hyperactivity disorder, unspecified type; Z98.890 Other specified postprocedural states; Z82.49 Family history of ischemic heart disease and other diseases of the circulatory system; Z79.899 Other long term (current) drug therapy
CPT/HCPCS: 36415; 74018; 80053; 85025; J0360; J1308; J2060; J2270; J2405; J7030